=== PATIENT | female | born 1980 | race African-American/Black ===

== ENCOUNTER → 2023-02-21 13:22 | Outpatient (BNVA) | payer OTHER, SELFPAY | PROVIDERS: PCP Internal Medicine Interventional Cardiology; Visit Provider Physician Assistant | DX: S39.012A Strain of muscle, fascia and tendon of lower back, initial encounter (principal); S86.912A Strain of unspecified muscle(s) and tendon(s) at lower leg level, left leg, initial encounter; W18.30XA Fall on same level, unspecified, initial encounter | CPT/HCPCS: 99203 ==